=== PATIENT | male | born 1950 | race Caucasian/White ===

== ENCOUNTER 2019-04-06 10:08 | Emergency (ER) | payer MEDICARE ==
[~2019-04-06] VITALS: Ht 175.3 cm; Wt 118.0 kg
[2019-04-06 10:22] VITALS: BP 124/88
[2019-04-06] MEDS ORDERED: LIDOcaine 1% W/epiNEPHrine 1:200,000 10ml vial IJ ONE (10:45)
[2019-04-06] MEDS ORDERED: TETanus/Pertussis (Acell)/Diphther VAC/PF (Tdap-Adult) 0.5ml syringe IMVAC ONE (11:15)
== END 2019-04-06 11:54 | disposition home or self-care (01) ==
LOC: ER 10:09
DX: L02.212 Cutaneous abscess of back [any part, except buttock and flank] (principal)
CPT/HCPCS: 10061; 90471; 90715; 99284

== ENCOUNTER 2019-04-17 10:31 | Emergency (ER) | payer MEDICARE ==
[~2019-04-17] VITALS: Ht 172.7 cm; Wt 120.0 kg
[2019-04-17 11:24] VITALS: BP 157/96
== END 2019-04-17 11:25 | disposition home or self-care (01) ==
LOC: ER 10:31
DX: S21.201D Unspecified open wound of right back wall of thorax without penetration into thoracic cavity, subsequent encounter (principal); X58.XXXD Exposure to other specified factors, subsequent encounter
CPT/HCPCS: 99282